=== PATIENT | female | born 1955 | race Caucasian/White ===

== ENCOUNTER → 2016-09-03 | Outpatient (CLI) | payer MEDICARE ==
[~2016-09-03] VITALS: Ht 160 cm; Wt 89.8 kg
[~2016-09-03] MED LIST: ALBUTEROL0.63 MG/3 INH; ATENOLOL50 MG PO; BUMETANIDE2 MG PO; ELAVIL 50 MG TA50 MG PO; ENDOCET 10-3251 EACH PO; LORTAB 5-325 M1 EACH PO; NAPROSYN500 MG PO; NEXIUM20 MG PO; PERCOCET 10-321 EACH PO; PLAVIX 75 MG TA75 MG PO; VENLAFAXINE HCL75 M2 PO; XARELTO10 MG PO; ZOFRAN 4 MG TAB4 MG PO
[2016-09-03 09:57] LABS: HEMOGLOBIN 13.1 gm/dl (12.3-15.3); RED BLOOD COUNT 4.45 M/UL (4.00-5.10); WHITE BLOOD COUNT 10.7 K/UL (4.5-11.0)
[2016-09-03 10:45] LABS: BUN/CREATININE RATIO 21 (0-10)
== END ==
LOC: OPSV2 09:12
PROVIDERS: Orthopaedic Surgery
DX: Z01.812 Encounter for preprocedural laboratory examination (principal); Z01.810 Encounter for preprocedural cardiovascular examination; M17.11 Unilateral primary osteoarthritis, right knee; Z88.3 Allergy status to other anti-infective agents; Z88.8 Allergy status to other drugs, medicaments and biological substances; Z91.040 Latex allergy status; Z86.73 Personal history of transient ischemic attack (TIA), and cerebral infarction without residual deficits; I25.2 Old myocardial infarction; I50.9 Heart failure, unspecified; R01.1 Cardiac murmur, unspecified
CPT/HCPCS: 36415; 80048; 81001; 83036; 85027; 87081; 87086; 93005

== ENCOUNTER → 2016-09-09 | Outpatient (CLI) | payer MEDICARE | LOC: NM 08:30 | DX: I25.2 Old myocardial infarction (principal); R07.9 Chest pain, unspecified | CPT/HCPCS: ECHO; 78452; 93017; 93306; A9502; J2785 ==

== ENCOUNTER 2016-09-13 05:43 | Inpatient (IN) | payer MEDICARE ==
[~2016-09-13] VITALS: Ht 162.6 cm; Wt 120.2 kg
[~2016-09-13 05:43] MED LIST changes: -ALBUTEROL0.63 MG/3 INH; -ENDOCET 10-3251 EACH PO; -NEXIUM20 MG PO; -PERCOCET 10-321 EACH PO; -PLAVIX 75 MG TA75 MG PO; -XARELTO10 MG PO
[2016-09-13] MEDS ORDERED: NEXIUM20 MG PO (07:09)
[2016-09-13] MEDS ORDERED: PLAVIX 75 MG TA75 MG PO (12:48)
[2016-09-13] MEDS ORDERED: ALBUTEROL0.63 MG/3 INH (13:01)
[2016-09-14 06:07] LABS: HEMOGLOBIN 9.9 gm/dl (12.3-15.3); RED BLOOD COUNT 3.44 M/UL (4.00-5.10)
[2016-09-14 06:17] LABS: BUN/CREATININE RATIO 13 (0-10)
--- NOTE | 2016-09-14 07:30 | NUR ---
PATIENT REFUSED TO ALLOW ME TO REMOVE F/C AT 0600
[2016-09-15 06:21] LABS: HEMOGLOBIN 9.9 gm/dl (12.3-15.3); RED BLOOD COUNT 3.51 M/UL (4.00-5.10); WHITE BLOOD COUNT 12.6 K/UL (4.5-11.0)
[2016-09-15 06:43] LABS: BUN/CREATININE RATIO 9 (0-10)
[2016-09-16 04:38] LABS: HEMOGLOBIN 10.1 gm/dl (12.3-15.3); RED BLOOD COUNT 3.6 M/UL (4.00-5.10); WHITE BLOOD COUNT 11.1 K/UL (4.5-11.0)
[2016-09-16 05:07] LABS: BUN/CREATININE RATIO 14 (0-10)
[2016-09-16] MEDS ORDERED: XARELTO10 MG PO ×2 (14:01→14:50)
[2016-09-16] MEDS ORDERED: ENDOCET 10-3251 EACH PO (14:06)
[2016-09-16] MEDS ORDERED: PERCOCET 10-321 EACH PO (14:44)
== END 2016-09-16 17:00 | disposition home health service (06) | DRG 470 ==
LOC: M/S 05:43 → ZOBSOF 05:43 → M/S 12:32
PROVIDERS: ADMIT Orthopaedic Surgery
PROC: 3E0T3CZ (ICD-10-PCS; 2016-09-13)
PROC: 0SRC0J9 Replacement of Right Knee Joint with Synthetic Substitute, Cemented, Open Approach (ICD-10-PCS; principal; 2016-09-13 08:15)
DX: M17.11 Unilateral primary osteoarthritis, right knee (principal); D62 Acute posthemorrhagic anemia; Z68.42 Body mass index [BMI] 45.0-49.9, adult; M21.061 Valgus deformity, not elsewhere classified, right knee; M25.761 Osteophyte, right knee; E66.9 Obesity, unspecified; N31.9 Neuromuscular dysfunction of bladder, unspecified; E87.6 Hypokalemia; J44.9 Chronic obstructive pulmonary disease, unspecified; I25.10 Atherosclerotic heart disease of native coronary artery without angina pectoris; I10 Essential (primary) hypertension; E11.9 Type 2 diabetes mellitus without complications; M81.0 Age-related osteoporosis without current pathological fracture; M06.9 Rheumatoid arthritis, unspecified; K21.9 Gastro-esophageal reflux disease without esophagitis; K44.9 Diaphragmatic hernia without obstruction or gangrene; K57.90 Diverticulosis of intestine, part unspecified, without perforation or abscess without bleeding; K59.00 Constipation, unspecified; M10.9 Gout, unspecified; M79.7 Fibromyalgia; F32.9 Major depressive disorder, single episode, unspecified; F41.9 Anxiety disorder, unspecified; I25.2 Old myocardial infarction; Z86.73 Personal history of transient ischemic attack (TIA), and cerebral infarction without residual deficits; Z86.718 Personal history of other venous thrombosis and embolism; Z79.02 Long term (current) use of antithrombotics/antiplatelets; Z79.1 Long term (current) use of non-steroidal anti-inflammatories (NSAID); Z99.81 Dependence on supplemental oxygen; Z79.899 Other long term (current) drug therapy; Z90.49 Acquired absence of other specified parts of digestive tract; Z98.890 Other specified postprocedural states; Z82.3 Family history of stroke; Z83.3 Family history of diabetes mellitus; Z82.0 Family history of epilepsy and other diseases of the nervous system; Z82.61 Family history of arthritis
CPT/HCPCS: 36415; 73560; 80048; 80051; 80053; 82565; 83735; 84132; 84520; 85027; 86850; 86900; 86901; 97110; 97116; 97530; 97535; C1776; J0690; J2250; J2270; J2405; J2710; J2795; J3010; J3370; J7120

== ENCOUNTER → 2016-09-23 | Outpatient (CLI) | payer MEDICARE ==
[~2016-09-23] MED LIST changes: +ALBUTEROL0.63 MG/3 INH; +ENDOCET 10-3251 EACH PO; +NEXIUM20 MG PO; +PERCOCET 10-321 EACH PO; +PLAVIX 75 MG TA75 MG PO; +XARELTO10 MG PO
== END ==
LOC: KOH-I 14:30
DX: I82.721 Chronic embolism and thrombosis of deep veins of right upper extremity (principal); Z88.1 Allergy status to other antibiotic agents; Z91.040 Latex allergy status; Z88.5 Allergy status to narcotic agent; Z88.7 Allergy status to serum and vaccine
CPT/HCPCS: 93971

== ENCOUNTER → 2016-11-11 | Outpatient (CLI) | payer MEDICARE | LOC: US 13:46 | DX: I82.721 Chronic embolism and thrombosis of deep veins of right upper extremity (principal); I82.5Z1 Chronic embolism and thrombosis of unspecified deep veins of right distal lower extremity; I82.4Z1 Acute embolism and thrombosis of unspecified deep veins of right distal lower extremity | CPT/HCPCS: 93971 ==

== ENCOUNTER → 2016-11-17 | Outpatient (CLI) | payer MEDICARE ==
[2016-11-17 14:19] LABS: HEMOGLOBIN 14.2 gm/dl (12.3-15.3); RED BLOOD COUNT 5.14 M/UL (4.00-5.10); WHITE BLOOD COUNT 12.5 K/UL (4.5-11.0)
== END ==
LOC: LAB 13:26
PROVIDERS: Orthopaedic Surgery
DX: T84.84XA Pain due to internal orthopedic prosthetic devices, implants and grafts, initial encounter (principal)
CPT/HCPCS: 36415; 85027; 86140